=== PATIENT | female | born 1970 | race Hispanic/Latino ===

== ENCOUNTER 2022-10-30 11:00 | Emergency (ER) | payer BC ==
[~2022-10-30] VITALS: Ht 165.1 cm; Wt 81.6 kg
[2022-10-30] MEDS ORDERED: KETOROLAC TROMETHAMINE 30 MG/ML VIAL IM STA ×2 (12:16→12:21)
[2022-10-30] MEDS ORDERED: IOPAMIDOL 370 MG/ML 100 ML INFUS..BTL INJ ONE (13:05)
[2022-10-30] MEDS ORDERED: KETOROLAC TROME10 MG PO (14:06)
[2022-10-30 14:44] VITALS: BP 142/78
== END 2022-10-30 14:46 | disposition home or self-care (01) ==
LOC: EDBD 11:00 → FSED 11:04
DX: R07.89 Other chest pain (principal); M54.2 Cervicalgia; I10 Essential (primary) hypertension; E78.5 Hyperlipidemia, unspecified; E27.9 Disorder of adrenal gland, unspecified
CPT/HCPCS: 71260; 80053; 81003; 81025; 84484; 85025; 93005; 99284; Q9967

== ENCOUNTER 2025-02-06 11:44 | Emergency (ER) | payer BC ==
[~2025-02-06] VITALS: Ht 165.1 cm; Wt 81.7 kg
[~2025-02-06 11:44] MED LIST: KETOROLAC TROME10 MG PO; PREDNISONE20 MG PO; SIMVASTATIN20 MG PO; [UNRECOGNIZED DRUG - OTHER] PO
[2025-02-06] MEDS ORDERED: SIMVASTATIN40 MG PO (11:59)
[2025-02-06] MEDS ORDERED: VALSARTAN-HCTZ1 EAC3 (11:59)
[2025-02-06] MEDS: KETOROLAC TROMETHAMINE 30 MG/ML VIAL IM STA (12:38)
[2025-02-06 12:52] VITALS: PULSE 70; RESP 16; TEMP 98.1; O2SAT 98
[2025-02-06] MEDS ORDERED: NAPROXEN375 MG PO (12:57)
== END 2025-02-06 13:04 | disposition home or self-care (01) ==
LOC: FSED 11:49
DX: M79.622 Pain in left upper arm (principal); M75.82 Other shoulder lesions, left shoulder; I10 Essential (primary) hypertension; E78.5 Hyperlipidemia, unspecified
CPT/HCPCS: 73030; 93005; 96372; 99283; J1885